=== PATIENT | male | born 1995 | race Caucasian/White ===

== ENCOUNTER 2021-06-04 01:19 | Emergency (ER) | payer SELFPAY ==
[~2021-06-04] VITALS: Ht 177 cm; Wt 68.0 kg
[2021-06-04] MEDS ORDERED: AMOX500C2 PO (01:37)
--- NOTE | 2021-06-04 01:37 | ED EENT ---
History of Present Illness General Chief Complaint: Dental Problems/Pain Stated Complaint: DENTAL PAIN Source: patient Exam Limitations: no limitations History of Present Illness Date Seen by Provider: Jun 04, 2021 Time Seen by Provider: 01:22 Initial Comments Patient ER by private conveyance chief complaint of 2 days of left upper and lower mandibular pain. Has been taking ibuprofen. He has not seen a dentist. He is not on antibiotics. No fevers chills difficulty swallowing. Allergies and Home Medications Patient Home Medication List Home Medication List Reviewed: Yes Review of Systems Review of Systems Constitutional: No chills, No diaphoresis Eyes: Denies Blindness, Denies Blurred Vision Ears: Denies Dizziness, Denies Pain Nose: denies clots Mouth: pain; denies swelling Throat: denies pain, denies swelling All Other Systems Reviewed Negative Unless Noted: Yes Past Qlnakei-Dehrtf-Ncfkmp Hx Patient Social History Tobacco Use?: Yes Use of E-Cig and/or Vaping dev: No Physical Exam Height, Weight, BMI Height: '" Weight: lbs. oz. kg; BMI Method: General Appearance: WD/WN, no apparent distress Eyes: bilateral eye normal inspection, bilateral eye PERRL, bilateral eye EOMI Ears: bilateral ear auricle normal, bilateral ear canal normal, bilateral ear TM normal Nose: normal inspection; No active bleeding Mouth/Throat: No normal mouth inspection (Extensive dental caries without pointing), No pharynx normal; dental tenderness (Left mandible and maxilla molars) Progress/Results/Core Measures Progress Progress Note : Time: :34 Progress Note Start antibiotics and follow-up with dentist Departure Impression Primary Impression: Pain, dental Disposition: HOME, SELF-CARE Condition: Stable Departure-Patient Inst. Decision time for Depature: 01:34 Referrals: NO,LOCAL PHYSICIAN (PCP/Family) Primary Care Physician Patient Instructions: Dental Pain (DC) Add. Discharge Instructions: Tylenol 1000 mg every 8 hours necessary for pain. Ibuprofen 800 mg every 8 hours necessary for pain. Warm compresses applied to the face as necessary for pain. Amoxicillin 1000 mg twice a day for the next 10 days. Follow-up with a dentist. All discharge instructions reviewed with patient and/or family. Voiced understanding. Scripts Amoxicillin (Amoxicillin) 500 Mg Capsule 1000 MG PO BID for 10 Days, #40 CAP 0 Refills Prov: EDITH YOUSSEF 06/04/21 EDITH YOUSSEF Jun 04, 2021 01:37
[2021-06-04 01:42] VITALS: BP 134/78
== END 2021-06-04 01:42 | disposition home or self-care (01) ==
LOC: ER 01:24
DX: K02.9 Dental caries, unspecified (principal)
CPT/HCPCS: 99282